=== PATIENT | female | born 1985 | race African-American/Black ===

== ENCOUNTER 2017-04-05 15:29 | Emergency (ER) | payer MEDICAID, OTHER ==
[~2017-04-05] VITALS: Ht 172.7 cm; Wt 100.0 kg
[2017-04-05] MEDS ORDERED: KETOROLAC 30MG/ML VIAL IM ONE (22:15)
[2017-04-05 23:20] VITALS: BP 128/83
== END 2017-04-05 23:30 | disposition home or self-care (01) ==
LOC: ER 21:59
DX: S16.1XXA Strain of muscle, fascia and tendon at neck level, initial encounter (principal); S39.012A Strain of muscle, fascia and tendon of lower back, initial encounter; F12.10 Cannabis abuse, uncomplicated; X50.0XXA Overexertion from strenuous movement or load, initial encounter; Y93.89 Activity, other specified; Y92.89 Other specified places as the place of occurrence of the external cause
CPT/HCPCS: 72040; 81025; 96372; 99284; J1885; X7700; Z7610

== ENCOUNTER 2017-10-20 18:29 | Emergency (ER) | payer MEDICAID ==
[~2017-10-20] VITALS: Ht 170.2 cm; Wt 86.0 kg
[2017-10-20] MEDS ORDERED: CYCLOBENZAPRINE 10MG TABLET PO ONE (22:15)
[2017-10-20] MEDS ORDERED: KETOROLAC 60MG/2ML VIAL IM ONE (22:15)
[2017-10-20 22:35] VITALS: BP 117/80
== END 2017-10-21 00:10 | disposition home or self-care (01) ==
LOC: ER 21:59
DX: S39.012A Strain of muscle, fascia and tendon of lower back, initial encounter (principal); J06.9 Acute upper respiratory infection, unspecified; F12.10 Cannabis abuse, uncomplicated; X50.1XXA Overexertion from prolonged static or awkward postures, initial encounter; Y93.B9 Activity, other involving muscle strengthening exercises; Y92.39 Other specified sports and athletic area as the place of occurrence of the external cause; Y99.8 Other external cause status
CPT/HCPCS: 71101; 72100; 96372; 99284; J1885

== ENCOUNTER 2017-12-29 12:27 | Emergency (ER) | payer MEDICAID ==
[~2017-12-29] VITALS: Ht 170.2 cm; Wt 84.0 kg
[2017-12-29] MEDS ORDERED: KETOROLAC 60MG/2ML VIAL IM ONE (15:15)
[2017-12-29 16:20] VITALS: BP 124/72
== END 2017-12-29 16:22 | disposition home or self-care (01) ==
LOC: ER 13:36
DX: S29.012A Strain of muscle and tendon of back wall of thorax, initial encounter (principal); M25.511 Pain in right shoulder; F12.10 Cannabis abuse, uncomplicated; X58.XXXA Exposure to other specified factors, initial encounter; Y93.89 Activity, other specified; Y92.89 Other specified places as the place of occurrence of the external cause; Y99.8 Other external cause status
CPT/HCPCS: 72070; 73030; 81025; 96372; 99284; J1885

== ENCOUNTER 2021-12-03 14:45 | Emergency (ER) | payer MEDICAID ==
[~2021-12-03] VITALS: Ht 170.2 cm; Wt 93.0 kg
[2021-12-03] MEDS ORDERED: IBUPROFEN 600MG TABLET PO ONE (16:30)
[2021-12-03 17:02] VITALS: BP 138/96
[2021-12-03] MEDS ORDERED: NAP5EC MT (18:11)
== END 2021-12-03 18:48 | disposition home or self-care (01) ==
LOC: ER 14:45
DX: M25.531 Pain in right wrist (principal); M25.562 Pain in left knee; M25.512 Pain in left shoulder; Z20.822 Contact with and (suspected) exposure to COVID-19
CPT/HCPCS: 29125; 73030; 73110; 99284; A4565

== ENCOUNTER 2023-01-02 10:26 | Emergency (ER) | payer MEDICAID ==
[~2023-01-02] VITALS: Ht 172.7 cm; Wt 101.0 kg
[~2023-01-02 10:26] MED LIST: NAP5EC MT
[2023-01-02 10:37] VITALS: BP 126/97
[2023-01-02] MEDS ORDERED: LIDO30CR TP (12:01)
== END 2023-01-02 12:12 | disposition home or self-care (01) ==
LOC: ER 10:26
DX: T21.12XA Burn of first degree of abdominal wall, initial encounter (principal); T31.0 Burns involving less than 10% of body surface; X08.8XXA Exposure to other specified smoke, fire and flames, initial encounter; Y93.89 Activity, other specified; Y92.89 Other specified places as the place of occurrence of the external cause; Y99.8 Other external cause status; F12.10 Cannabis abuse, uncomplicated
CPT/HCPCS: 99283

== ENCOUNTER 2023-01-20 09:08 | Emergency (ER) | payer MEDICAID ==
[~2023-01-20] VITALS: Ht 170.2 cm; Wt 100.0 kg
[~2023-01-20 09:08] MED LIST changes: +LIDO30CR TP
[2023-01-20 09:14] VITALS: BP 143/95
[2023-01-20] MEDS ORDERED: IBUP-2029 MT (09:26)
[2023-01-20] MEDS ORDERED: AMOX-494 MT (09:26)
== END 2023-01-20 09:48 | disposition home or self-care (01) ==
LOC: ER 09:08
DX: R68.84 Jaw pain (principal); K04.7 Periapical abscess without sinus; F12.10 Cannabis abuse, uncomplicated
CPT/HCPCS: 99281